=== PATIENT | female | born 1985 | race Caucasian/White ===

== ENCOUNTER 2021-01-04 14:26 | Outpatient (CLI) | payer OTHER, SELFPAY ==
[2021-01-04 15:13] LABS: Basophils Absolute Auto 0.1 K/mm3 (0.0-0.1); Basophils Percent Auto 0.6 % (0.2-1.2); Eosinophils Absolute Auto 0.2 K/mm3 (0-0.3); Eosinophils Percent Auto 1.8 % (0-4.4); Hematocrit 41.2 % (37.0-47.0); Hemoglobin 14.1 g/dL (12.0-15.0); Immature Granulocyte Absolute 0.03 K/mm3 (0.00-0.031); Immature Granulocyte Percent A 0.3 % (0-0.5); Lymphocytes Absolute Auto 3.53 K/mm3 (0.9-3.2); Lymphocytes Percent Auto 40.4 % (18.3-44.2); Mean Corpuscular HGB Conc 34.2 g/dl (32-36); Mean Corpuscular Hemoglobin 30.3 pg (26-34); Mean Corpuscular Volume 88.6 fl (80-100); Mean Platelet Volume 9.3 fl (7.4-10.4); Monocytes Absolute Auto 0.6 K/mm3 (0.1-0.6); Monocytes Percent Auto 6.9 % (2.6-8.5); Neutrophils Absolute Auto 4.4 K/mm3 (1.3-6.7); Platelet Count Result 410 k/mm3 (150-375); Red Blood Count 4.65 M/mm3 (4.2-5.4); White Blood Count 8.7 K/mm3 (4.5-10.0)
[2021-01-04 15:39] LABS: Alanine Aminotransferase 25 U/L (4-35); Albumin Level 4.7 g/dL (3.5-5.1); Alkaline Phosphatase 88 U/L (38-126); Anion Gap 11 mmol/L (8-16); Aspartate Amino Transferase 24 U/L (14-36); Bilirubin,Total 0.5 mg/dL (0.2-1.3); Blood Urea Nitrogen 9 mg/dL (7-17); Calcium 9.6 mg/dL (8.4-10.2); Carbon Dioxide 24 mmol/L (22-30); Chloride 103 mmol/L (98-107); Estimated Glomerular Filt Rate > 60; Glucose 105 mg/dL (65-110); Sodium 138 mmol/L (137-145)
== END 2021-01-04 14:27 | disposition home or self-care (01) ==
LOC: ANHLAB 14:29
PROVIDERS: PCP Family Medicine; Visit Provider Physician Assistant
DX: R10.11 Right upper quadrant pain (principal)
CPT/HCPCS: 36415; 80053; 85025

== ENCOUNTER 2021-01-13 10:56 | Outpatient (CLI) | payer OTHER, SELFPAY ==
--- NOTE | ~2021-01-13 | US_ITS ---
US abdomen limited DATE: 01/13/2021 12:01 INDICATION: Right upper quadrant abdominal pain, nausea TECHNIQUE: Real-time imaging and Doppler analysis COMPARISON: None FINDINGS: The pancreatic tail is obscured. The pancreas is otherwise unremarkable. No hepatic space-occupying mass lesion. Normal hepatopedal portal venous flow direction. No gallstones or gallbladder wall thickening. Negative sonographic Vilchis's sign. The common bile sergo t measures 2 mm, normal. IMPRESSION: Pancreas is incompletely visualized; otherwise negative examination Reviewed, dictated and finalized at [facility]. Reviewed, dictated and finalized at location A.
== END 2021-01-13 10:57 ==
PROVIDERS: PCP Family Medicine; Visit Provider Physician Assistant
DX: R10.11 Right upper quadrant pain (principal)
CPT/HCPCS: 76705

== ENCOUNTER 2021-02-04 09:45 | Outpatient (CLI) | payer OTHER, SELFPAY ==
--- NOTE | ~2021-02-04 | NM_ITS ---
EXAMINATION: NM hepatobiliary wo pharm DATE: 02/04/2021 13:58 INDICATION: Right upper quadrant abdominal pain. COMPARISON: Ultrasound 01/13/2021 TECHNIQUE: 5 mCi Tc-99m mebrofenin (Choletec) was administered intravenously. Scintigraphic images o f the abdomen were obtained for one hour. Then, the patient drank 8 oz Ensure, and imaging was contin ued for 60 minutes. FINDINGS: There is normal clearance of radiotracer from the blood pool. There is homogeneous tracer u ptake by the liver. Activity progresses to the bowel and gallbladder. Gallbladder ejection fraction (GBEF) was 86%. Note that with this technique, normal GBEF >= 33%. IMPRESSION: 1. Normal hepatobiliary scintigraphy. Reviewed, dictated and finalized at location A.
== END 2021-02-04 09:46 | disposition home or self-care (01) ==
LOC: ANHIMG 09:48
PROVIDERS: PCP Family Medicine; Visit Provider Family Medicine
DX: R10.11 Right upper quadrant pain (principal)
CPT/HCPCS: 78226; A9537

== ENCOUNTER 2021-03-28 13:38 | Outpatient (CLI) | payer OTHER, SELFPAY ==
[2021-03-28 14:45] LABS: CRP 1.3 mg/dL (<1.0)
[2021-03-28 15:16] LABS: Erythrocyte Sedimentation Rate 22 mm/hr (0-20)
[2021-03-30 17:37] LABS: Tissue Transglutaminase IgA Ab <1.0 U/mL (<15.0)
[2021-03-31 20:52] LABS: Tissue Transglutaminase IgG Ab <1.0 U/mL (<15.0)
== END 2021-03-28 13:39 | disposition home or self-care (01) ==
LOC: ANHLAB 13:43
PROVIDERS: PCP Family Medicine; Visit Provider Nurse Practitioner Family
DX: R19.7 Diarrhea, unspecified (principal)
CPT/HCPCS: 36415; 83516; 85652; 86140

== ENCOUNTER 2021-04-14 16:54 | Outpatient (CLI) | payer OTHER, SELFPAY | END 2021-04-14 16:55 | disposition home or self-care (01) | LOC: ANHLAB 16:56 | PROVIDERS: PCP Family Medicine; Visit Provider Nurse Practitioner Family | DX: R19.7 Diarrhea, unspecified (principal) | CPT/HCPCS: 87045; 87177; 87209; 87324; 87427 ==

== ENCOUNTER 2021-12-15 00:45 | Day surgery (SDC) | payer OTHER, SELFPAY ==
[2021-12-01 11:23] VITALS: BMI 33.0
--- NOTE | 2021-12-14 13:43 | PM.HPGS ---
History of Present Illness History of Present Illness Consent: Risks, benefits, and alternatives have been discussed and questions answered. Patient agrees to proceed with procedure. Chief complaint: nausea, vomiting, epigastric pain Narrative: Stephanie Richard is a 36 year old female Referred for investigation of persistent nausea vomiting and epigastric pain. It is generally worse after meals. She has been taking Nexium without any benefit over the past 6 months. Her weight is stable. She also has had diarrhea. Review of Systems Review of Systems: All systems reviewed & are unremarkable except as noted in HPI and below PMFSH Past Medical History Medical History Depression Diarrhea Elevated C-reactive protein (CRP) Elevated erythrocyte sedimentation rate HLD (hyperlipidemia) TMJ (temporomandibular joint disorder) Family History Family History Father Hypertension Family history of diabetes mellitus in first degree relative Other Diabetes mellitus Family history of arthritis Family history of malignant neoplasm Family history of seizure disorder Social History Social History Smoking status: Never smoker Second hand tobacco smoke exposure: No Alcohol intake: never Alcohol use details: socially Substance use: never Substance use type: does not use Living arrangements: with family Gender identity (if verbalized by the patient): Female Sexual Orientation (if Verbalized by the Patient): Straight or Heterosexual Meds Home Medications and Allergies Home Medications Medication Instructions Recorded Confirmed Type norethindrone 1 mg-e. estradiol 20 1 tablet PO DAILY 08/05/19 12/01/21 History mcg (24)-iron 75 mg (4) chew tablet (Minastrin 24 Fe) cetirizine 10 mg tablet (Zyrtec) 10 mg PO DAILY 02/04/20 12/01/21 History escitalopram oxalate 10 mg tablet See Rx Instructions .Route 02/07/21 12/01/21 Rx .COMPLEX #90 tabs Nexium 20 mg PO DAILY 12/01/21 12/01/21 History multivitamin with minerals-folic 1 tablet PO DAILY 12/01/21 12/01/21 History acid 0.4 mg tablet buspirone 5 mg tablet 5 mg PO BID #180 tabs 08/31/22 09/08/22 Rx Allergies Allergy/AdvReac Type Severity Reaction Status Date / Time azithromycin Allergy Unknown Hives Verified 12/15/21 10:03 cephalexin Allergy Unknown Hives Verified 12/15/21 10:03 doxycycline Allergy Unknown rash Verified 12/15/21 10:03 Sulfa (Sulfonamide Allergy Unknown Hives Verified 12/15/21 10:03 Antibiotics) Exam Const: General: alert Orientation/consciousness: patient oriented x3 Resp: Auscultation: clear to auscultation bilaterally Cardio: Rhythm: regular rhythm GI: GI Palp: Yes Soft to palpation and No Tenderness to palpation present (GI) Neuro: General: patient oriented x3 Assessment and Plan Assessment and plan (1) Nausea and vomiting: Code(s): R11.2 - Nausea with vomiting, unspecified Status: Acute Assessment and Plan: EGD with possible biopsy or dilatation or cautery.
[2021-12-15 10:06] VITALS: BP 136/99; PULSE 83; RESP 18; TEMP 36.8; O2SAT 99
[2021-12-15] MEDS: LACTATED RINGERS 1,000 ML 150 ML IV CONT (10:18)
[2021-12-15 11:17] VITALS: BP 110/74; PULSE 79; RESP 18; O2SAT 98
[2021-12-15 11:27] VITALS: BP 114/77; PULSE 77; RESP 18; O2SAT 99
[2021-12-15 11:37] VITALS: BP 118/79; PULSE 73; RESP 19; O2SAT 100
== END 2021-12-15 11:48 | disposition home or self-care (01) ==
PROVIDERS: PCP Family Medicine; Visit Provider Internal Medicine Gastroenterology
PROC: 0DJ08ZZ Inspection of Upper Intestinal Tract, Via Natural or Artificial Opening Endoscopic (ICD-10-PCS; CPT 43235; principal; 2021-12-15 11:00)
DX: K29.70 Gastritis, unspecified, without bleeding (principal); E78.5 Hyperlipidemia, unspecified; F32.A Depression, unspecified
CPT/HCPCS: 43239; 88305; 88342; J2704; J7120

== ENCOUNTER 2023-08-27 20:01 | Emergency (ER) | payer OTHER, SELFPAY ==
--- NOTE | ~2023-08-27 | CT_ITS ---
EXAMINATION: CT brain wo con DATE: 08/27/2023 21:30 INDICATION: Headache TECHNIQUE: Computed tomography (CT) of the head was performed without intravenous contrast. Sagittal and coronal reconstructions were performed. The mA was adjusted according to patient size. Iterative reconstruction technique was employed. The dose-length product was 605.33 mGy-cm. COMPARISON: None FINDINGS: No acute intracranial hemorrhage, acute infarction or abnormal extra axial fluid collection. Ventricl es are normal and symmetric. No mass/mass effect. The orbits, paranasal sinuses and mastoid air cells are normal. IMPRESSION: 1. Normal head CT. Reviewed, dictated and finalized at location A. IMPRESSION: 1. Normal head CT.
[2023-08-27 20:02] VITALS: BP 147/107; PULSE 103; RESP 19; TEMP 36.3; O2SAT 100
--- NOTE | 2023-08-27 21:54 | ED.HA ---
HPI - Headache General Chief Complaint: Headache Stated Complaint: migraine Time Seen by Provider: 08/27/23 20:30 Source: patient Mode of arrival: ambulatory Limitations: no limitations History of Present Illness HPI Narrative: This is a 37 year old female that presents to the ER for headache. Ongoing over the last 6 days. Reports history of migraines, but this one is lasting longer than usual. She has been taking her triptan and over the counter medications with intermittent relief. Reports achy pain to the left temporal region. Associated with some nausea. No recent head injuries. Denies fever, vomiting, numbness or weakness. Related Data Home Medications Medication Instructions Recorded Confirmed cetirizine 10 mg tablet (Zyrtec) 10 mg PO DAILY 02/04/20 08/15/23 multivitamin with minerals-folic 1 tablet PO DAILY 12/01/21 08/15/23 acid 0.4 mg tablet omeprazole magnesium 20 mg 20 mg PO DAILY 05/11/23 08/15/23 tablet,delayed release (Prilosec OTC) Allergies Allergy/AdvReac Type Severity Reaction Status Date / Time azithromycin Allergy Unknown Hives Verified 08/27/23 20:15 cephalexin Allergy Unknown Hives Verified 08/27/23 20:15 doxycycline Allergy Unknown rash Verified 08/27/23 20:15 Sulfa (Sulfonamide Allergy Unknown Hives Verified 08/27/23 20:15 Antibiotics) Review of Systems Review of Systems: CONSTITUTIONAL: Denies fever EYES: Denies visual changes GASTROINTESTINAL: Denies vomiting NEUROLOGIC: Reports headache. Denies numbness, or weakness. All systems reviewed & are unremarkable except as noted in HPI and below PMFSH Past Medical History Medical History Depression Diarrhea Elevated C-reactive protein (CRP) Elevated erythrocyte sedimentation rate Gestational hypertension HLD (hyperlipidemia) Migraine TMJ (temporomandibular joint disorder) Surgical History Surgical History History of appendectomy (1997) History of colposcopy (10/06/20) Benign History of orthopedic surgery 1988,1993 & 1995 2 BROKEN ARMS Family History Family History Father Hypertension Family history of diabetes mellitus in first degree relative Other Diabetes mellitus Family history of arthritis Family history of malignant neoplasm Family history of seizure disorder Social History Social History Smoking status: Never smoker Second hand tobacco smoke exposure: Yes (father smokes) Alcohol intake: current Alcohol use details: socially 1 a month? 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 HEAD: Normocephalic, atraumatic. EYES: PERRLA and EOMI. ENT: Nares clear, no rhinorrhea or epistaxis. Mucous membranes moist. Oropharynx without tonsillar hypertrophy exudate or other lesions. Bilateral TMs pearly cervantes non-bulging NECK: Supple. No adenopathy or masses. Normal range of motion CHEST: Clear to auscultation. No respiratory distress. No wheezes rales or rhonchi HEART: Regular rate and rhythm. No murmur heard. Normal peripheral pul
[2023-08-27] MEDS: ACETAMINOPHEN 500 MG TABLET 1000 MG PO (22:09)
[2023-08-27] MEDS: KETOROLAC 15 MG/ML VIAL (*BKC) IV PUSH (22:16)
[2023-08-27] MEDS: diphenhydrAMINE HCl INJ 50 MG/ML VIAL 25 MG IV PUSH (22:17)
[2023-08-27] MEDS: SODIUM CHLORIDE 0.9% IV 1,000 ML 999 ML IV CONT (22:19)
[2023-08-27] MEDS: METOCLOPRAMIDE HCL INJ 10 MG/2 ML VIAL IV PUSH (22:19)
[2023-08-28] VITALS: BP 129/99; PULSE 96; RESP 16; O2SAT 97
== END 2023-08-28 | disposition home or self-care (01) ==
PROVIDERS: Emergency Provider Physician Assistant; PCP Family Medicine
DX: R51.9 Headache, unspecified (principal); E78.5 Hyperlipidemia, unspecified; Z77.22 Contact with and (suspected) exposure to environmental tobacco smoke (acute) (chronic); F32.A Depression, unspecified
CPT/HCPCS: 70450; 96361; 96374; 96375; 99284; A9270; J1200; J1885; J2765; J7030

== ENCOUNTER 2023-11-08 08:39 | Emergency (ER) | payer OTHER, SELFPAY ==
--- NOTE | ~2023-11-08 | US_ITS ---
US pelvic complete w TV Ordering provider: Joe Navarro MD History: . menorrhagia . Comparison: None. Technique: Transabdominal and endovaginal ultrasound of the pelvis (Doppler ultrasound interrogation techniques used as needed for this exam.) FINDINGS: CERVIX: Nabothian cysts. UTERUS: Measures 7.6x 3.3x 4.6 cm in length which is within normal limits and is anteverted. No myom etrial masses. ENDOMETRIUM: Normal in thickness measuring 4 mm. Small amount of fluid is seen in the endometrial cav ity. No endometrial masses, or cysts. CUL DE SAC: No free fluid. RIGHT OVARY: Normal in size measuring 1.4x 2.4x 1.9 cm.. Normal echotexture. Doppler vascular flow pr esent. LEFT OVARY: Normal in size measuring 6.5x 4.4x 5.6 cm. Normal echotexture. Doppler vascular flow pres ent. Large simple cyst is seen measuring 5.9 x 4.9 x 5.1 cm. IMPRESSION: Large simple cyst in the left ovary. Otherwise, normal pelvic ultrasound. Reviewed, dictated and finalized at location A.
[2023-11-08 08:46] VITALS: BP 136/97; PULSE 88; RESP 20; TEMP 36.6; O2SAT 100
[2023-11-08 09:08] LABS: Basophils Absolute Auto 0.1 K/mm3 (0.0-0.1); Basophils Percent Auto 0.9 % (0.2-1.2); Eosinophils Absolute Auto 0.2 K/mm3 (0-0.3); Hematocrit 48.2 % (37.0-47.0); Hemoglobin 15.5 g/dL (12.0-15.0); Immature Granulocyte Absolute 0.01 K/mm3 (0.00-0.031); Immature Granulocyte Percent A 0.1 % (0-0.5); Lymphocytes Absolute Auto 3.19 K/mm3 (0.9-3.2); Lymphocytes Percent Auto 40.3 % (18.3-44.2); Mean Corpuscular HGB Conc 32.2 g/dl (32-36); Mean Corpuscular Volume 93.2 fl (80-100); Mean Platelet Volume 9.6 fl (7.4-10.4); Monocytes Absolute Auto 0.6 K/mm3 (0.1-0.6); Monocytes Percent Auto 7.3 % (2.6-8.5); Neutrophils Absolute Auto 3.9 K/mm3 (1.3-6.7); Neutrophils Percent Auto 49.4 % (45.5-73.1); Platelet Count Result 443 k/mm3 (150-375); Red Blood Count 5.17 M/mm3 (4.2-5.4); Red Cell Distribution Width 13.2 % (11.5-14.5); White Blood Count 7.9 K/mm3 (4.5-10.0)
--- NOTE | 2023-11-08 09:11 | ED.GENADULT ---
HPI - General Adult General Chief complaint: Vaginal Bleeding Stated complaint: HEAVY VAG BLEEDING X7D Time Seen by Provider: 11/08/23 08:44 History of Present Illness HPI narrative: Patient is a 38-year-old female who presents ER with heavy vaginal bleeding. She has been going through multiple pads a day. Has felt somewhat lightheaded. No syncope. She is on no blood thinning agents. She has not had a menstrual cycle for 11 years due to taking continuous control. She did change her control pill 2 months ago. No real abdominal cramping. Called her over the/Gyne who recommended she be evaluated in the ER. Related Data Home Medications Medication Instructions Recorded Confirmed cetirizine 10 mg tablet (Zyrtec) 10 mg PO DAILY 02/04/20 08/15/23 multivitamin with minerals-folic 1 tablet PO DAILY 12/01/21 08/15/23 acid 0.4 mg tablet omeprazole magnesium 20 mg 20 mg PO DAILY 05/11/23 08/15/23 tablet,delayed release (Prilosec OTC) Allergies Allergy/AdvReac Type Severity Reaction Status Date / Time azithromycin Allergy Unknown Hives Verified 11/08/23 08:48 cephalexin Allergy Unknown Hives Verified 11/08/23 08:48 doxycycline Allergy Unknown rash Verified 11/08/23 08:48 Sulfa (Sulfonamide Allergy Unknown Hives Verified 11/08/23 08:48 Antibiotics) Review of Systems Review of Systems: All systems reviewed & are unremarkable except as noted in HPI and below Constitutional: Constitutional: Reports no additional constitutional complaints Cardiovascular: Cardiovascular: Reports no additional cardiovascular complaints Respiratory: Respiratory: Reports no additional respiratory complaints Gastrointestinal: Gastrointestinal: Reports no additional gastrointestinal complaints Genitourinary: Genitourinary: Reports abnormal vaginal bleeding, Denies dysuria, Denies pelvic pain and Denies flank pain PMF Past Medical History Medical History Depression Diarrhea Elevated C-reactive protein (CRP) Elevated erythrocyte sedimentation rate Gestational hypertension HLD (hyperlipidemia) Migraine TMJ (temporomandibular joint disorder) Surgical History Surgical History History of appendectomy (1997) History of colposcopy (10/06/20) Benign History of orthopedic surgery 1988,1993 & 1995 2 BROKEN ARMS Family History Family History Father Hypertension Family history of diabetes mellitus in first degree relative Other Diabetes mellitus Family history of arthritis Family history of malignant neoplasm Family history of seizure disorder Social History Social History Smoking status: Never smoker Second hand tobacco smoke exposure: Yes (father smokes) Alcohol intake: current Alcohol use details: socially 1 a month? 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 HEAD: Normocephalic, atraumatic. ENT: Mucous membranes moist. CHEST: Clear to auscultation. No respiratory distress. HEART: Regular rate and rhythm. Normal peripheral pul
[2023-11-08 09:19] LABS: INR 0.9; Prothrombin Time 12.6 Seconds (11.1-14.7)
[2023-11-08 09:20] LABS: Alanine Aminotransferase 29 U/L (6-35); Alkaline Phosphatase 100 U/L (38-126); Anion Gap 11 mmol/L (4-12); Aspartate Amino Transferase 29 U/L (14-36); Bilirubin,Total 0.9 mg/dL (0.2-1.3); Blood Urea Nitrogen 12 mg/dL (7-17); Calcium 9.4 mg/dL (8.4-10.2); Carbon Dioxide 28 mmol/L (22-30); Chloride 101 mmol/L (98-107); Estimated CRCL calculation 89 ml/min; Estimated Glomerular Filt Rate > 60; Glucose 89 mg/dL (65-110); Partial Thromboplastin Time 32.4 Seconds (22.3-36.8); Sodium 140 mmol/L (137-145)
[2023-11-08 10:35] VITALS: BP 126/93; PULSE 87; RESP 20; O2SAT 100
[2023-11-08 11:10] VITALS: BP 130/91; PULSE 87; RESP 17; O2SAT 99
== END 2023-11-08 11:13 | disposition home or self-care (01) ==
PROVIDERS: Emergency Provider Emergency Medicine; PCP Family Medicine
DX: N83.202 Unspecified ovarian cyst, left side (principal); N92.0 Excessive and frequent menstruation with regular cycle; E78.5 Hyperlipidemia, unspecified
CPT/HCPCS: 36415; 76830; 76856; 80053; 85025; 85610; 85730; 99284

== ENCOUNTER 2024-05-01 19:25 | Emergency (ER) | payer OTHER, SELFPAY ==
[2024-05-01 19:27] VITALS: BP 131/92; PULSE 115; RESP 20; TEMP 36.9; O2SAT 97
--- OUTSIDE RECORDS SUMMARY | 2024-05-02 06:22 | XMS_ITS | Referral Summary ---
Author Organization [facility] Address [address] [place] [id number] Care Team Providers Care Belt Fixer Name Role Phone Derek Sumner MD Primary Care Provider Derek Sumner MD Unavailable [phone] Allergies Active Allergy Reactions Criticality Noted Date Comments Azithromycin Hives Medium 06/08/2022 Cephalexin Hives Medium 12/25/2017 Sulfa (Sulfonamide Antibiotics) Hives Medium 12/08 Medications IBUPROFEN ORAL Take by mouth. Active cetirizine (ZyrTEC) 10 mg tablet Take 10 mg by mouth daily. Active norethindrone ac-eth estradiol (FEMHRT 04/13) 1-5 mg-mcg tablet Take by mouth daily. Active Active Problems No known active problems Social History Tobacco Use Types Packs/Day Years Used Date Smoking Tobacco: Never Smokeless Tobacco: Never Tobacco Cessation:Counseling Given: Not Answered Alcohol Use Standard Drinks/Week Comments Yes 0 (1 standard drink = 0.6 oz pur e alcohol) rare Comments Unknown Sex and Gender Information Value Date Recorded Sex Assigned at Not on file Legal Sex Female 5:34 PM CDT Gender Identity Not on file Sexual Orientation Not on file Last Filed Vital Signs Vital Sign Reading Time Taken Comments Blood Pressure 137/93 06/08/2022 5:20 PM LOUVER DOOR ASSEMBLER Pulse 81 06/08/2022 5:20 PM LOUVER DOOR ASSEMBLER Temperature 36.7 ??C (98 ??F) 06/08/2022 5:39 PM LOUVER DOOR ASSEMBLER Respiratory Rate 17 06/08/2022 5:20 PM LOUVER DOOR ASSEMBLER Oxygen Saturation 100% 06/08/2022 5:20 PM LOUVER DOOR ASSEMBLER Inhaled Oxygen Concentration - - Weight 94.3 kg (208 lb) 06/08/2022 9:46 AM LOUVER DOOR ASSEMBLER Height 167.6 cm (5' 6 ) 06/08/2022 9:46 AM LOUVER DOOR ASSEMBLER Body Mass Index 33.57 06/08/2022 9:46 AM LOUVER DOOR ASSEMBLER Plan of Treatment Not on file Insurance [facility]S [facility] Address: [address] [place] [address] [employer] Address: [address] [place] [phone] [facility] CLAIMS [employer] Address: [facility] [id number] [place] [address] [facility] CLAIMS Care Teams Belt Fixer Relationship Specialty Start Date End Date Derek Sumner MD [address] [place] [id number] PCP - General Family Medicine 06/08/22 Derek Sumner MD [address] [facility] [address] [place] [address] Family Medicine 06/08/22
--- OUTSIDE RECORDS SUMMARY | 2024-05-02 06:22 | XMS_ITS | Clinical Summary ---
Author Organization [facility] Address [address] [place] [id number] Care Team Providers Care Propulsion Machinery Service Engineer Name Role Phone Derek Sumner MD Primary Care Provider Derek Sumner MD Unavailable [phone] Allergies Active Allergy Reactions Criticality Noted Date Comments Azithromycin Hives Medium 06/08/2022 Cephalexin Hives Medium 12/25/2017 Sulfa (Sulfonamide Antibiotics) Hives Medium 12/08 Medications IBUPROFEN ORAL Take by mouth. Active cetirizine (ZyrTEC) 10 mg tablet Take 10 mg by mouth daily. Active norethindrone ac-eth estradiol (FEMHRT 04/13) 1-5 mg-mcg tablet Take by mouth daily. Active Active Problems No known active problems Surgical History Surgery Date Site/Laterality Comments APPENDECTOMY Medical History Medical History Date Comments Anxiety Allergic rhinitis Migraines Broken arm reduced 3x Family History Medical History Relation Name Comments COPD Father Diabetes Father Hypertension Father Allergies Mother Relation Name Status Comments Father Mother Social History Tobacco Use Types Packs/Day Years [...] on file Sexual Orientation Not on file Obstetrics History Last Filed Vital Signs Vital Sign Reading Time Taken Comments Blood Pressure 137/93 06/08/2022 5:20 PM WET FINISHER Pulse 81 06/08/2022 5:20 PM WET FINISHER Temperature 36.7 ??C (98 ??F) 06/08/2022 5:39 PM WET FINISHER Respiratory Rate 17 06/08/2022 5:20 PM WET FINISHER Oxygen Saturation 100% 06/08/2022 5:20 PM WET FINISHER Inhaled Oxygen Concentration - - Weight 94.3 kg (208 lb) 06/08/2022 9:46 AM WET FINISHER Height 167.6 cm (5' 6 ) 06/08/2022 9:46 AM WET FINISHER Body Mass Index 33.57 06/08/2022 9:46 AM WET FINISHER Plan of Treatment Health Maintenance Due Date Last Done Comments Cervical Cancer Screening 1985 Depression Screening 1985 Hepatitis C Screening 1985 DTaP/Tdap/Td Vaccine (1 - Tdap) 1996 Varicella Vaccines (1 of 2 - 13+ 2-dose series) 1998 Hepatitis B Screening 09/07/2003 Regular Well Visit/Exam 18-64 09/07/2003 Covid-19 Vaccine (3 2023-2 5 season) 2023 07/09/2020, 06/18/2020 Influenza Vaccine (#1) 2023 HPV Vaccines Aged Out No longer eligi ble based on patient's age to complete this topic Pneumococcal vaccine <65 Aged Out No longer eligible based on patient's age to complete this topic Insurance [facility]S [facility] Address: [facility] [address] [place] [phone] [facility] Address: [facility] [address] [place] [address] [facility] Address: [place] [id number] [place] [address] [facility] [employer] Address: [facility] [address] [place] [address] [facility] CLAIMS Care Teams Propulsion Machinery Service Engineer Relationship Specialty Start Date End Date Derek Sumner MD [address] [place] [address] [place] [address] PCP - General Family Medicine 06/08/22 Derek Sumner MD [address] [place] [address] [place] [address] Family Medicine 06/08/22
== END 2024-05-01 23:05 | disposition left against medical advice (07) ==
LOC: ANHED 22:50
PROVIDERS: PCP Family Medicine
DX: R10.10 Upper abdominal pain, unspecified (principal)
CPT/HCPCS: 99199